=== PATIENT | male | born 1970 | race Caucasian/White ===

== ENCOUNTER 2019-08-01 18:54 | Emergency (ER) | payer SELFPAY ==
[2019-08-01] MEDS ORDERED: Acetaminophen/oxyCODONE 325-5 MG Tab PO ONE (18:55)
[2019-08-01] MEDS ORDERED: traMADol 50 MG Tab PO ONE (18:55)
[2019-08-01] MEDS ORDERED: fentaNYL 100 MCG/2 ML SDV IVPUSH ONE ×2 (18:59→19:14)
[2019-08-01] MEDS ORDERED: Midazolam 1 MG/ML 2 ML SDV IVPUSH ONE ×3 (18:59→19:24)
[2019-08-01] MEDS ORDERED: Sodium Chloride 0.9% 1,000 ML IV ONE (19:02)
[2019-08-01] MEDS ORDERED: fentaNYL 100 MCG/2 ML SDV ONE (19:13)
[2019-08-01] MEDS ORDERED: Midazolam 1 MG/ML 2 ML SDV ONE (19:23)
--- NOTE | 2019-08-01 19:29 | EDM.PDOC ---
ED HPI GENERAL MEDICAL PROBLEM - General Chief Complaint: Lower Extremity Injury/Pain Stated Complaint: BROKEN ANKLE Time Seen by Provider: 08/01/19 19:00 Source of Information: Reports: Patient, Family History Limitations: Reports: No Limitations - History of Present Illness INITIAL COMMENTS - FREE TEXT/NARRATIVE: ED per wheelchair with c/o slipped fell while putting on boat cover, ankle turned outward. Pain deformity. Lat meal 0900. Denies other injury, did not hit head no loss of consciousness. Left Ankle Pain Score (Numeric/FACES): 9 - Related Data Allergies Allergy/AdvReac Type Severity Reaction Status Date / Time Iodine and Iodide Containing Allergy Anaphylactic Verified 08/01/19 21:14 Produc Shock Social & Family History - Tobacco Use Smoking Status *Q: Current Every Day Smoker Years of Tobacco use: 32 Packs/Tins Daily: 10 - Caffeine Use Caffeine Use: Reports: Coffee - Recreational Drug Use Recreational Drug Use: No Review of Systems - Review of Systems Review Of Systems: ROS reveals no pertinent complaints other than HPI. ED EXAM, GENERAL - Physical Exam Exam: See Below Exam Limited By: No Limitations General Appearance: Alert, Moderate Distress Eye Exam: Bilateral Eye: PERRL Ears: Normal External Exam, Hearing Grossly Normal Nose: Normal Inspection Throat/Mouth: Normal Voice Head: Atraumatic, Normocephalic Neck: Normal Inspection Respiratory/Chest: No Respiratory Distress Cardiovascular: Regular Rate, Rhythm Extremities: Joint Swelling (left ankle), Other (gross deformity left ankle skin taught intact). No: Normal Inspection Neurological: Alert, Normal Cognition Psychiatric: Normal Affect Skin Exam: Warm, Dry, Intact, Ecchymosis (left ankle) ED TRAUMA EXTREMITY PROCEDURES - Joint Reduction Site: Other (left ankle) Sedation: Conscious Sedation Pre-Procedure NV Status: Abnormal (pulses absent, extremity cool) Post-Procedure NV Status: Normal (good pulses, good cap refill, improved color of foot, toes sensation intact) Technique: Traction/Counter Traction Number of Attempts: 1 Post-Reduction Imaging: Completely Reduced, Fracture Seen Joint Reduction Complications: No - Splinting Left Lower Extremity Splint Site: lower leg ankle Pre-Procedure NV Status: Normal Post-Procedure NV Status: Normal Splint Material: Fiberglass Splint Design: Posterior Applied & Form Fitted By: Provider Provider Post-Splint Application NV Check: NV Status Normal, Good Position Complications: No Course - Vital Signs Last Recorded V/S: Last Vital Signs Temp 96 F 08/01/19 18:59 Pulse 86 08/01/19 19:35 Resp 16 08/01/19 19:35 BP 108/70 08/01/19 19:35 Pulse Ox 99 08/01/19 19:35 - Orders/Labs/Meds Meds: Medications Discontinued Medications Generic Name Dose Route Start Last Admin Trade Name Celio PRN Reason Stop Dose Admin Fentanyl 100 mcg 08/01/19 18:59 08/01/19 19:09 Sublimaze IVPUSH 08/01/19 19:00 100 mcg ONETIME ONE Administration Fentanyl 50 mcg 08/01/19 19:14 08/01/19 19:14 Sublimaze IVPUSH 08/01/19 19:15 50 mcg ONETIME ONE Administration Fentanyl Confirm 08/01/19 19:13 08/01/19 19:22 Sublimaze Administered 08/01/19 19:14 Not Given Dose 100 mcg .ROUTE .STK-MED ONE Sodium Chloride 1,000 mls @ 999 mls/hr 08/01/19 19:02 08/01/19 19:10 Normal Saline IV 08/01/19 20:02 999 mls/hr .BOLUS ONE Administration Sodium Chloride 1,000 mls @ 200 mls/hr 08/01/19 19:45 08/01/19 19:46 Normal Saline IV 200 mls/hr ASDIRECTED AL Administration Midazolam HCl 1 mg 08/01/19 18:59 08/01/19 19:10 Versed 1 Mg/Ml IVPUSH 08/01/19 19:00 1 mg ONETIME ONE Administration Midazolam HCl 4 mg 08/01/19 19:01 08/01/19 19:08 Versed 1 Mg/Ml IVPUSH 08/01/19 19:02 2 mg ONETIME ONE Administration Midazolam HCl 2 mg 08/01/19 19:24 08/01/19 19:26 Versed 1 Mg/Ml IVPUSH 08/01/19 19:25 2 mg ONETIME ONE Administration Midazolam HCl Confirm 08/01/19 19:23 08/01/19 19:45 Versed 1 Mg/Ml Administered 08/01/19 19:24 Not Given Dose 2 mg .ROUTE .STK-MED ONE Oxycodone/Acetaminophen Confirm 08/01/19 20:23 08/01/19 20:58 Percocet 325-5 Mg Administered 08/01/19 20:24 Not Given Dose 3 tab .ROUTE .STK-MED ONE Tramadol HCl Confirm 08/01/19 20:38 08/01/19 20:58 Ultram Administered 08/01/19 20:39 Not Given Dose 150 mg .ROUTE .STK-MED ONE - Radiology Interpretation Free Text/Narrative:: [facility] [place] [facility] Final Radiology Report Call: [phone] assistance Online chat: [email or web address] Name: SIM HENDERSON Age: 49Years M Date: 08/01/2019 SSN: -- : 1970 Study: XR ANKLE 1 OR 2 VIEWS LEFT Requesting Physician: JAGDISH MAIER Images: 2 Addl Studies: Provided Clinical History: Contrast: Contrast Medium: Contrast Amount: Contrast Method: CONFIDENTIALITY STATEMENT This report is intended only for use by the referring physician, and only in accordance with law. If you received this in error, call [phone]. Page 1 of 1 PROCEDURE INFORMATION: Exam: XR Left Ankle Exam date and time: 08/01/2019 7:11 PM Clinical history: 49 years old, male; Other: Fall/pain TECHNIQUE: Imaging protocol: XR Left ankle. Views: 1 or 2 views. COMPARISON: No relevant prior studies available. FINDINGS: Bones/joints: There is acute, comminuted and laterally angulated fracture through the distal fibular shaft with a butterfly fragment measuring up to 6.2 cm and complete lateral displacement of the distal fragment. There is also acute comminuted fracture through the distal tibia, with apparent fragments of the posterior malleolus measuring up to 3 cm and of the medial malleolus measuring up to 2 cm. The distal articular surface of the tibia is completely displaced anteriorly and medially in the talar dome. No other fracture is evident. There is a small plantar calcaneal enthesophyte. Soft tissues: There is some associated soft tissue swelling. IMPRESSION: Acute fracture-dislocation of the ankle as described. Thank you for allowing us to participate in the care of your patient. Dictated and Authenticated by: Lucas Rossi MD 08/01/2019 8:19 PM Central Time ([place] & [place]) [facility] Final Radiology Report Call: [phone] assistance Online chat: [email or web address] Name: SIM HENDERSON Age: 49Years M Date: 08/01/2019 SSN: -- : 1970 Study: XR ANKLE 1 OR 2 VIEWS LEFT Requesting Physician: JAGDISH MAIER Images: 2 Addl Studies: Provided Clinical History: Contrast: Contrast Medium: Contrast Amount: Contrast Method: CONFIDENTIALITY STATEMENT This report is intended only for use by the referring physician, and only in accordance with law. If you received this in error, call [phone]. Page 1 of 1 PROCEDURE INFORMATION: Exam: XR Left Ankle Exam date and time: 08/01/2019 7:31 PM Clinical history: 49 years old, male; Other: Post reduction TECHNIQUE: Imaging protocol: XR Left ankle. Views: 1 or 2 views. COMPARISON: CR Ankle Min 3V Lt 08/01/2019 7:11 PM FINDINGS: Bones/joints: There has been interval reduction of the previous tibiotalar dislocation, with the distal tibial articular surface now apparently aligned with the talar dome. There is improved anatomic alignment of the previously described posterior and medial malleolar fractures. Some additional fracture fragments are now evident anteriorly at the level of the tibiotalar joint. There is also improved anatomic alignment of the previously noted distal fibular fracture. A small plantar enthesophyte is again present. Soft tissues: There is an associated soft tissue swelling. IMPRESSION: Interval reduction of previous tibiotalar dislocation since earlier the same day , with improved anatomic alignment of previously described distal tibial and fibular fractures. Thank you for allowing us to participate in the care of your patient. Dictated and Authenticated by: Lucas Rossi MD 08/01/2019 8:20 PM Central Time ([place] & [place]) [facility] Final Radiology Report Call: [phone] assistance Online chat: [email or web address] Name: SIM HENDERSON Age: 49Years M Date: 08/01/2019 SSN: -- : 1970 Study: XR ANKLE 1 OR 2 VIEWS LEFT Requesting Physician: JAGDISH MAIER Images: 2 Addl Studies: Provided Clinical History: Contrast: Contrast Medium: Contrast Amount: Contrast Method: CONFIDENTIALITY STATEMENT This report is intended only for use by the referring physician, and only in accordance with law. If you received this in error, call [phone]. Page 1 of 1 PROCEDURE INFORMATION: Exam: XR Left Ankle Exam date and time: 08/01/2019 7:48 PM Clinical history: 49 years old, male; Other: Post cast TECHNIQUE: Imaging protocol: XR Left ankle. Views: 1 or 2 views. COMPARISON: CR Ankle 2V Lt 08/01/2019 7:31 PM FINDINGS: Bones/joints: There has been interval casting of the ankle, which somewhat obscures fine details. Alignment of the tibiotalar joint and distal tibial and fibular fractures appears fairly similar. Soft tissues: There is again some soft tissue swelling. IMPRESSION: Casted ankle fractures. Thank you for allowing us to participate in the care of your patient. Dictated and Authenticated by: Lucas Rossi MD 08/01/2019 8:21 PM Central Time ([place] & [place] Departure - Departure Time of Disposition: 20:15 Disposition: Home, Self-Care 01 Condition: Good Clinical Impression: Dislocation of left ankle joint, initial encounter Fracture, fibula closed, shaft Qualifiers: Encounter type: initial encounter Fracture morphology: segmental Fracture alignment: displaced Laterality: left Qualified Code(s): S82.462A - Displaced segmental fracture of shaft of left fibula, initial encounter for closed fracture - Discharge Information *PRESCRIPTION DRUG MONITORING PROGRAM REVIEWED*: No *COPY OF PRESCRIPTION DRUG MONITORING REPORT IN PATIENT JAI: No Instructions: Closed Reduction for Ankle Fracture or Dislocation, Cast or Splint Care, Adult Forms: ED Department Discharge Additional Instructions: Elevate extremity ice keep splint in place continue to watch for change in color or sensation of foot NON weight bearing Use crutches mild to moderate discomfort tylenol 650mg or Ibuprofen 600mg alternate every 4 hours Tramadol 10mg one every6 hours as needed for severe pain Ortho follow up on Monday call to schedule [phone]
[2019-08-01] MEDS ORDERED: Sodium Chloride 0.9% 1,000 ML IV SCH (19:45)
[2019-08-01] MEDS ORDERED: Acetaminophen/oxyCODONE 325-5 MG Tab ONE (20:23)
[2019-08-01] MEDS ORDERED: traMADol 50 MG Tab ONE (20:38)
== END 2019-08-01 20:55 | disposition home or self-care (01) ==
LOC: DL.ED 18:54
DX: S93.05XA Dislocation of left ankle joint, initial encounter (principal); S82.462A Displaced segmental fracture of shaft of left fibula, initial encounter for closed fracture; F17.210 Nicotine dependence, cigarettes, uncomplicated; Z91.048 Other nonmedicinal substance allergy status; W01.0XXA Fall on same level from slipping, tripping and stumbling without subsequent striking against object, initial encounter
CPT/HCPCS: 27810; 27840; 73600; 99284; A9270; J2250; J3010; J7030; 29505

== ENCOUNTER 2022-06-07 17:02 | Emergency (ER) | payer SELFPAY ==
[~2022-06-07 17:02] MED LIST: Aspirin 81 MG Tab.Chew ONE; Aspirin 81 MG Tab.Chew PO ONE; Clopidogrel 75 MG Tab ONE; Clopidogrel 75 MG Tab PO ONE; Heparin Sodium 5,000 Units/ML Vial IVPUSH ONE; Heparin Sodium 5,000 Units/ML Vial ONE; Heparin Sodium/0.45% NaCl 25,000 UNITS/500 ML BAG IV SCH; Nitroglycerin 0.4 MG Tab.SL ONE; Nitroglycerin 0.4 MG Tab.SL SL ONE; Ondansetron 4 MG/2 ML SDV IVPUSH ONE; Ondansetron 4 MG/2 ML SDV ONE; Sodium Chloride 0.9% 10 ML Syringe FLUSH PRN; atorvaSTATin 20 MG Tab ONE; atorvaSTATin 20 MG Tab PO ONE
[2022-06-07 17:03] LABS: ANION GAP 13.7 mEq/L (7-13); CHLORIDE,CL 98 mmol/L (98-107); ESTIMATED GFR 79 mL/min (>=60); SODIUM,NA 136 mmol/L (136-145)
[2022-06-07] MEDS ORDERED: Ondansetron 4 MG/2 ML SDV IVPUSH ONE (17:12)
== END 2022-06-07 17:07 ==
LOC: DL.ED 17:02
DX: I21.3 ST elevation (STEMI) myocardial infarction of unspecified site (principal); Z91.041 Radiographic dye allergy status; Z20.822 Contact with and (suspected) exposure to COVID-19
CPT/HCPCS: 36415; 71045; 80053; 82150; 83605; 83690; 83735; 84145; 84443; 84484; 85025; 86140; 93005; 93010; 96374; 99285; 99285-25; A9270-GY; J1644; U0002